=== PATIENT | male | born 2000 | race American Indian/Alaskan Native ===

== ENCOUNTER 2018-01-23 21:21 | Emergency (ER) | payer MEDICAID ==
[2018-01-23 21:24] VITALS: TEMP 98.2; BMI 22.1
[2018-01-23] MEDS ORDERED: DiphenhydrAMINE 50 mg/ml Inj IVP ONE (21:35)
--- NOTE | 2018-01-23 21:55 | ED PDOC ---
Arrival/HPI - General Chief Complaint: Allergic Reaction Time Seen by Provider: 01/23/18 21:23 Historian: Patient - History of Present Illness Narrative History of Present Illness (Text): 01/23/18 21:52 A 17 year old male, whose past medical history includes an allergy to shrimp, presents to the emergency department complaining of an allergic reaction. The patient states that he ate shrimp this evening and began to develop redness to the skin . The patient denies fevers, chills, headache, dizziness, chest pain, shortness of breath, dyspnea on exertion, cough, abdominal pain, nausea, vomiting, diarrhea, back pain, neck pain, urinary/bowel changes, or any other complaint. Time/Duration: Other (This Evening) Symptom Onset: Sudden Symptom Course: Unchanged Activities at Onset: Rest, Light Context: Home Past Medical History - Provider Review Nursing Documentation Reviewed: Yes - Past History Past History: No Previous - Infectious Disease Hx of Infectious Diseases: None - Tetanus Immunization Tetanus Immunization: Unknown, Up to Date - Cardiac Hx Cardiac Disorders: No - Pulmonary Hx Respiratory Disorders: No - Neurological Hx Neurological Disorder: No - HEENT Hx HEENT Disorder: No - Renal Hx Renal Disorder: No - Endocrine/Metabolic Hx Endocrine Disorders: No - Hematological/Oncological Hx Blood Disorders: No - Integumentary Hx Dermatological Disorder: No - Musculoskeletal/Rheumatological Hx Musculoskeletal Disorders: No - Gastrointestinal Hx Gastrointestinal Disorders: No - Genitourinary/Gynecological Hx Genitourinary Disorders: No - Psychiatric Hx Psychophysiologic Disorder: No Hx Substance Use: Yes (Daily use of marijuana) - Past Surgical History Past Surgical History: No Previous - Anesthesia Hx Anesthesia: Yes Hx Anesthesia Reactions: No - Suicidal Assessment Feels Threatened In Home Enviroment: No Family/Social History - Physician Review Nursing Documentation Reviewed: Yes Family/Social History: No Known Family HX Smoking Status: Light Smoker < 10 Cigarettes Daily Hx Alcohol Use: No Hx Substance Use: Yes (Daily use of marijuana) Hx Substance Use Treatment: No Allergies/Home Meds Allergies/Adverse Reactions: Allergies shrimp Allergy (Verified 01/23/18 21:24) RASH Review of Systems - Physician Review All systems were reviewed & negative as marked: Yes - Review of Systems Constitutional: absent: Fevers, Night Sweats Respiratory: absent: SOB, Cough Cardiovascular: absent: Chest Pain, MOR[place]AND Gastrointestinal: absent: Abdominal Pain, Stool Changes, Diarrhea, Nausea, Vomiting Genitourinary Male: absent: Urinary Output Changes Musculoskeletal: absent: Back Pain, Neck Pain Skin: Rash (Redness to the skin) Neurological: absent: Headache, Dizziness Physical Exam Vital Signs Reviewed: Yes Vital Signs Temp Pulse Resp BP Pulse Ox 01/23/18 21:23 98.2 F 95 H 18 109/65 95 Temperature: Afebrile Blood Pressure: Normal Pulse: Tachycardic Respiratory Rate: Normal Appearance: Positive for: Well-Appearing, Non-Toxic, Comfortable Pain Distress: None Mental Status: Positive for: Alert and Oriented X 3 - Systems Exam Head: Present: Atraumatic, Normocephalic Pupils: Present: PERRL Extroacular Muscles: Present: EOMI Conjunctiva: Present: Normal Mouth: Present: Moist Mucous Membranes Neck: Present: Normal Range of Motion Respiratory/Chest: Present: Clear to Auscultation, Good Air Exchange. No: Respiratory Distress, Accessory Muscle Use Cardiovascular: Present: Regular Rate and Rhythm, Normal S1, S2. No: Murmurs Abdomen: Present: Normal Bowel Sounds. No: Tenderness, Distention, Peritoneal Signs Back: Present: Normal Inspection Upper Extremity: Present: Normal Inspection. No: Cyanosis, Edema Lower Extremity: Present: Normal Inspection. No: Edema Neurological: Present: GCS=15, CN II-XII Intact, Speech Normal Skin: Present: Warm, Dry, Rashes (redness to the skin. ) Psychiatric: Present: Alert, Oriented x 3, Normal Insight, Normal Concentration Medical Decision Making ED Course and Treatment: 01/23/18 21:57 Impression: A 17 year old male presents to the emergency department s/p allergic reaction to shrimp complaining of developing redness to the skin. Plan: -- Benadryl and SOLU- Medrol -- Reassess and disposition Progress Notes: - Medication Orders Current Medication Orders: Discontinued Medications Diphenhydramine HCl (Benadryl) 25 mg IVP ONCE ONE Stop: 01/23/18 21:36 Last Admin: 01/23/18 21:53 Dose: 25 mg IVP Administration Document 01/23/18 21:53 RD (Rec: 01/23/18 21:53 RD [id number]) Charges for Administration # of IVP Administrations 1 Methylprednisolone (Solu-Medrol) 125 mg IVP ONCE ONE Stop: 01/23/18 21:36 Last Admin: 01/23/18 21:52 Dose: 125 mg IVP Administration Document 01/23/18 21:52 RD (Rec: 01/23/18 21:52 RD [id number]) Charges for Administration # of IVP Administrations 1 - Scribe Statement The provider has reviewed the documentation as recorded by the Amandaibe Marli Medley Provider Scribe Attestation: All medical record entries made by the Scribe were at my direction and personally dictated by me. I have reviewed the chart and agree that the record accurately reflects my personal performance of the history, physical exam, medical decision making, and the department course for this patient. I have also personally directed, reviewed, and agree with the discharge instructions and disposition. Disposition/Present on Arrival - Present on Arrival Any Indicators Present on Arrival: No History of DVT/PE: No History of Uncontrolled Diabetes: No Urinary Catheter: No History of Decub. Ulcer: No History Surgical Site Infection Following: None - Disposition Have Diagnosis and Disposition been Completed?: Yes Diagnosis: Food allergy Disposition: HOME/ ROUTINE Disposition Time: 22:53 Condition: GOOD Discharge Instructions (ExitCare): Food Allergy Prescriptions: predniSONE [predniSONE Tab] 20 mg PO TID #15 tab hydrOXYzine Pamoate [Vistaril] 25 mg PO QID #12 cap Forms: [employer] (Burmese)
[2018-01-23 23:01] VITALS: BP 119/67; PULSE 89; RESP 17; O2SAT 99
== END 2018-01-23 23:00 | disposition home or self-care (01) ==
LOC: ED 21:21
DX: L27.2 Dermatitis due to ingested food (principal); F17.210 Nicotine dependence, cigarettes, uncomplicated
CPT/HCPCS: 96374; 96375; 99283; J1200; J2930

== ENCOUNTER 2019-03-10 12:52 | Emergency (ER) | payer MEDICAID ==
[2019-03-10 12:52] VITALS: BMI 22.1
[2019-03-10 13:17] VITALS: RESP 18
--- NOTE | 2019-03-10 15:31 | ED PDOC ---
Arrival/HPI - General Chief Complaint: ENT Problem Time Seen by Provider: 03/10/19 13:00 Historian: Patient - History of Present Illness Narrative History of Present Illness (Text): 03/10/19 15:31 18-year-old male presents today with a 4-5-day history of a clogged sensation in the left ear. Patient denies pain. Patient states he just has a muffled sound in the ear. Patient states that he does use Q-tips. Patient denies headache dizziness or weakness. No fevers or chills. No chest pain or shortness of breath. No other complaints. Past Medical History - Provider Review Nursing Documentation Reviewed: Yes - Travel History Have you recently traveled outside [place] w/in the past 3 mons?: No - Past History Past History: No Previous - Infectious Disease Hx of Infectious Diseases: None - Tetanus Immunization Tetanus Immunization: Unknown, Up to Date - Cardiac Hx Cardiac Disorders: No - Pulmonary Hx Respiratory Disorders: No - Neurological Hx Neurological Disorder: No - HEENT Hx HEENT Disorder: No - Renal Hx Renal Disorder: No - Endocrine/Metabolic Hx Endocrine Disorders: No - Hematological/Oncological Hx Blood Disorders: No - Integumentary Hx Dermatological Disorder: No - Musculoskeletal/Rheumatological Hx Musculoskeletal Disorders: No - Gastrointestinal Hx Gastrointestinal Disorders: No - Genitourinary/Gynecological Hx Genitourinary Disorders: No - Psychiatric Hx Psychophysiologic Disorder: No Hx Substance Use: Yes (Daily use of marijuana) - Past Surgical History Past Surgical History: No Previous - Anesthesia Hx Anesthesia: Yes Hx Anesthesia Reactions: No - Suicidal Assessment Feels Threatened In Home Enviroment: No Family/Social History - Physician Review Nursing Documentation Reviewed: Yes Family/Social History: Unknown Family HX Smoking Status: Light Smoker < 10 Cigarettes Daily Hx Alcohol Use: No Hx Substance Use: Yes (Daily use of marijuana) Hx Substance Use Treatment: No Allergies/Home Meds Allergies/Adverse Reactions: Allergies shrimp Allergy (Verified 01/23/18 21:24) RASH Home Medications: Home Meds Medication Instructions Recorded Confirmed No Known Home Med 03/10/19 03/10/19 Review of Systems - Review of Systems Constitutional: absent: Fatigue, Fevers ENT: Other (clogged sensation left ear). absent: Sinus Congestion Respiratory: absent: SOB, Cough Cardiovascular: absent: Chest Pain, Palpitations Gastrointestinal: absent: Abdominal Pain, Nausea, Vomiting Genitourinary Male: absent: Dysuria Musculoskeletal: absent: Arthralgias Skin: absent: Rash Neurological: absent: Headache, Dizziness Psychiatric: absent: Anxiety, Depression Physical Exam Vital Signs Reviewed: Yes Vital Signs Temp Pulse Resp BP Pulse Ox 03/10/19 13:13 98.6 F 74 18 114/71 99 Temperature: Afebrile Blood Pressure: Normal Pulse: Regular Respiratory Rate: Normal Appearance: Positive for: Well-Appearing, Non-Toxic, Comfortable Pain Distress: None Mental Status: Positive for: Alert and Oriented X 3 - Systems Exam Head: Present: Atraumatic Ears: Present: Normal Canal. No: NORMAL TM (left tm obstructed by cerumen; right TM wnl), Erythema Mouth: Present: Moist Mucous Membranes Pharnyx: Present: Normal Neck: Present: Normal Range of Motion Respiratory/Chest: Present: Clear to Auscultation Cardiovascular: Present: Regular Rate and Rhythm Skin: Present: Warm, Dry, Normal Color. No: Rashes Psychiatric: Present: Alert, Oriented x 3 Medical Decision Making ED Course and Treatment: 03/10/19 15:32 18-year-old male with 4-5-day history of decreased hearing in the left ear/clogged sensation. Patient was found to have a cerumen impaction in the left ear. Procedure note: Left ear: Using an 18-gauge Angiocath and a 20 cc syringe the ear was flushed using sterile water. A large amount of cerumen was removed from the ear. Hearing was restored. The TM is within normal limits. The patient tolerated the procedure well. No complications Patient was advised to follow-up with ENT specialist and primary care physician within the next 2 days. He was advised to me to return if symptoms worsen persist or if new concerning symptoms develop Patient verbalizes understanding of discharge instructions and need for immediate followup. All aspects of this case were discussed the attending of record. Impression: Cerumen impaction Follow-up with primary care physician within the next 2 days Follow-up with ENT specialist within the next 2 days Return immediately if symptoms worsen persist or if new concerning symptoms develop Reassessment Condition: Re-examined, Improved Disposition/Present on Arrival - Present on Arrival Any Indicators Present on Arrival: No History of DVT/PE: No History of Uncontrolled Diabetes: No Urinary Catheter: No History of Decub. Ulcer: No History Surgical Site Infection Following: None - Disposition Have Diagnosis and Disposition been Completed?: Yes Diagnosis: Cerumen impaction Disposition: HOME/ ROUTINE Disposition Time: 15:00 Patient Plan: Discharge Condition: GOOD Discharge Instructions (ExitCare): Ear Wax Impaction (DC) Additional Instructions: Follow-up with primary care physician within the next 2 days Follow-up with ENT specialist within the next 2 days Return immediately if symptoms worsen persist or if new concerning symptoms develop Referrals: Faheem Andersen MD [Primary Care Provider] - Follow up with primary King Herron DO [Staff Provider] - Follow up with primary Forms: [employer] (Georgian), WORK NOTE
[2019-03-10 15:59] VITALS: BP 110/68; PULSE 70; TEMP 98.4; O2SAT 100
== END 2019-03-10 16:02 | disposition home or self-care (01) ==
LOC: ED 12:52
DX: H61.22 Impacted cerumen, left ear (principal)

== ENCOUNTER 2019-03-31 09:39 | Emergency (ER) | payer MEDICAID ==
[2019-03-31 09:39] VITALS: BMI 22.1
[2019-03-31 09:52] VITALS: BP 119/71; PULSE 75; RESP 18; TEMP 98.8; O2SAT 99
[2019-03-31] MEDS ORDERED: ALUMINUM HYDROXIDE PO STA ×2 (10:01→10:15)
[2019-03-31] MEDS ORDERED: VISCOUS PO STA ×2 (10:01→10:15)
[2019-03-31] MEDS ORDERED: MAGNESIUM PO STA ×2 (10:01→10:15)
[2019-03-31] MEDS ORDERED: LIDOCAINE 2% PO STA ×2 (10:01→10:15)
[2019-03-31] MEDS ORDERED: DIPHENHYDRAMINE PO STA ×2 (10:01→10:15)
--- NOTE | 2019-03-31 10:07 | ED PDOC ---
Arrival/HPI - General Chief Complaint: ENT Problem Historian: Patient - History of Present Illness Narrative History of Present Illness (Text): 03/31/19 10:04 18 year old M with no significant pmh presents complaining of rhinorrhea and sore throat x2days. Patient denies being in contact with one sick but endorses having seasonal allergies. Patient denies any fevers, chills, headache, dizziness, chest pain, shortness of breath, dyspnea on exertion, cough, diaphoresis, abdominal pain, nausea, vomiting, diarrhea, back pain, neck pain, or any other complaint. Time/Duration: < week Symptom Onset: Sudden Symptom Course: Unchanged Activities at Onset: Light Context: Home Past Medical History - Provider Review Nursing Documentation Reviewed: Yes - Past History Past History: No Previous - Infectious Disease Hx of Infectious Diseases: None - Tetanus Immunization Tetanus Immunization: Unknown, Up to Date - Cardiac Hx Cardiac Disorders: No - Pulmonary Hx Respiratory Disorders: No - Neurological Hx Neurological Disorder: No - HEENT Hx HEENT Disorder: No - Renal Hx Renal Disorder: No - Endocrine/Metabolic Hx Endocrine Disorders: No - Hematological/Oncological Hx Blood Disorders: No - Integumentary Hx Dermatological Disorder: No - Musculoskeletal/Rheumatological Hx Musculoskeletal Disorders: No - Gastrointestinal Hx Gastrointestinal Disorders: No - Genitourinary/Gynecological Hx Genitourinary Disorders: No - Psychiatric Hx Psychophysiologic Disorder: No Hx Substance Use: Yes (Daily use of marijuana) - Past Surgical History Past Surgical History: No Previous - Anesthesia Hx Anesthesia: Yes Hx Anesthesia Reactions: No - Suicidal Assessment Feels Threatened In Home Enviroment: No Family/Social History - Physician Review Nursing Documentation Reviewed: Yes Family/Social History: Unknown Family HX Smoking Status: Light Smoker < 10 Cigarettes Daily Hx Alcohol Use: No Hx Substance Use: Yes (Daily use of marijuana) Hx Substance Use Treatment: No Allergies/Home Meds Allergies/Adverse Reactions: Allergies shrimp Allergy (Verified 01/23/18 21:24) RASH Review of Systems - Physician Review All systems were reviewed & negative as marked: Yes - Review of Systems Constitutional: absent: Fevers ENT: Sore Throat, Rhinorrhea. absent: Hearing Changes, Tinnitus, Epistaxis Cardiovascular: absent: Chest Pain, Palpitations Gastrointestinal: absent: Abdominal Pain, Constipation, Diarrhea, Nausea, Vomiting, Hematochezia, Hematemesis Genitourinary Male: absent: Dysuria, Frequency Musculoskeletal: absent: Arthralgias, Back Pain, Neck Pain, Myalgias Skin: absent: Rash, Pruritis, Laceration Neurological: absent: Headache, Dizziness, Speech Changes, Facial Droop Physical Exam Vital Signs Reviewed: Yes Vital Signs Temp Pulse Resp BP Pulse Ox 03/31/19 09:48 98.8 F 75 18 119/71 99 Temperature: Afebrile Blood Pressure: Normal Pulse: Regular Respiratory Rate: Normal Appearance: Positive for: Well-Appearing, Non-Toxic, Comfortable Pain Distress: Mild Mental Status: Positive for: Alert and Oriented X 3 - Systems Exam Head: Present: Atraumatic, Normocephalic Mouth: Present: Dry Pharnyx: Present: ERYTHEMA. No: EXUDATE, TONSILS ENLARGED, Uvular Deviation Neurological: Present: GCS=15, CN II-XII Intact, Speech Normal Lymphatic: No: Cervical Adenopathy Psychiatric: Present: Alert, Oriented x 3, Normal Insight, Normal Concentration Medical Decision Making ED Course and Treatment: 03/31/19 10:07 Impression: 18 year old M presents complaining of rhinorrhea and sore throat x2days. Patient denies being in contact with one sick but endorses having seasonal allergies Plan: -- Claritin -- Rapid strep -- Reassess and disposition Prior Visits: Notes and results from previous visits were reviewed. Progress Notes: - Lab Interpretations Lab Results: Lab Results 03/31/19 10:40: Grp A Beta Strep Ag Negative I have reviewed the lab results: Yes - Medication Orders Current Medication Orders: Al Hydrox/Mg Hydrox/Simethicone 20 ml/Diphenhydramine HCl 50 mg/Lidocaine 20 ml 0 ml PO STAT STA Stop: 03/31/19 10:02 Loratadine (Claritin) 10 mg PO ONCE ONE Stop: 03/31/19 10:02 - Scribe Statement The provider has reviewed the documentation as recorded by the Tamiko Sin All medical record entries made by the Amandaibangeline were at my direction and personally dictated by me. I have reviewed the chart and agree that the record accurately reflects my personal performance of the history, physical exam, medical decision making, and the department course for this patient. I have also personally directed, reviewed, and agree with the discharge instructions and disposition. Disposition/Present on Arrival - Present on Arrival Any Indicators Present on Arrival: No History of DVT/PE: No History of Uncontrolled Diabetes: No Urinary Catheter: No History of Decub. Ulcer: No History Surgical Site Infection Following: None - Disposition Have Diagnosis and Disposition been Completed?: Yes Diagnosis: Acute rhinosinusitis, Environmental allergies Disposition: HOME/ ROUTINE Disposition Time: 11:10 Patient Plan: Discharge Condition: STABLE Discharge Instructions (ExitCare): Sinusitis, Adult (DC), Seasonal Allergies (DC) Print Language: TRISTANIAN Additional Instructions: All medical record entries made by the Scribe were at my direction and personally dictated by me. I have reviewed the chart and agree that the record accurately reflects my personal performance of the history, physical exam, medical decision making, and the department course for this patient. I have also personally directed, reviewed, and agree with the discharge instructions and disposition. Please follow up in clinic in 1 week Take medications as needed Prescriptions: Loratadine [Claritin] 10 mg PO Q8H #12 tab Referrals: Chelsey Flores MD [Medical Doctor] - Follow up with primary [facility] at [facility] [place] [Outside] - Follow up with primary Forms: [employer] (Yoruba), WORK NOTE
== END 2019-03-31 11:27 | disposition home or self-care (01) ==
LOC: ED 09:39
DX: J01.90 Acute sinusitis, unspecified (principal); F17.210 Nicotine dependence, cigarettes, uncomplicated